=== PATIENT | female | born 1950 | race Caucasian/White ===

== ENCOUNTER 2021-02-25 16:02 | Emergency (ER) | payer MEDICARE | END 2021-02-25 19:40 | disposition home or self-care (01) | LOC: ER1 16:02 | DX: M54.5 Low back pain (principal); G89.29 Other chronic pain; R05 Cough; I10 Essential (primary) hypertension; Z88.0 Allergy status to penicillin; Z79.899 Other long term (current) drug therapy | CPT/HCPCS: 71045; 99283 ==